=== PATIENT | female | born 1960 | race Caucasian/White ===

== ENCOUNTER → 2016-08-24 | Outpatient (CLI) | payer BC, OTHER ==
[~2016-08-24] MED LIST: AMLO-110 PO; ASPCH81X PO; CLOP1TAB15 PO; DOCU100C31 PO; OXYC-57 PO
--- NOTE | 2016-08-24 13:44 | MAMMOGRAPHY REPORT ---
BILATERAL DIGITAL SCREENING MAMMOGRAM TOMOSYNTHESIS WITH CAD: 08/24/2016 CLINICAL HISTORY: Routine screening. Patient has no complaints. TECHNIQUE: Breast tomosynthesis in addition to standard 2D mammography was performed. Current study was also evaluated with a Computer Aided Detection (CAD) system. COMPARISON: Comparison is made to exams dated: 08/13/2015 mammogram, 08/11/2014 mammogram, 08/07/2012 ma mmogram, 12/28/2009 mammogram, and 08/08/2013 mammogram - [facility]. BREAST COMPOSITION: The tissue of both breasts is heterogeneously dense, which may obscure small ma sses. FINDINGS: No suspicious masses, calcifications, or areas of architectural distortion are noted in e ither breast. There has been no significant interval change compared to prior exams. IMPRESSION: ACR BI-RADS CATEGORY 1: NEGATIVE There is no mammographic evidence of malignancy. A 1 year screening mammogram is recommended. The p atient will receive written notification of the results. Approximately 10% of breast cancers are not detected with mammography. A negative mammographic repor t should not delay biopsy if a clinically suggestive mass is present. Sarah Campuzano M.D. /:08/24/2016 08:38:35 [employer] Laborer: France Molina, [facility] letter sent: Normal 1/2 BI-RADS Code: ACR BI-RADS Category 1: Negative
== END | disposition home or self-care (01) ==
LOC: C.MAMM 08:06
PROVIDERS: ATTEND Family Medicine
DX: Z12.31 Encounter for screening mammogram for malignant neoplasm of breast (principal)

== ENCOUNTER → 2017-08-30 | Outpatient (CLI) | payer OTHER ==
--- NOTE | 2017-08-30 14:04 | MAMMOGRAPHY REPORT ---
BILATERAL DIGITAL SCREENING MAMMOGRAM TOMOSYNTHESIS WITH CAD: 08/30/2017 CLINICAL HISTORY: Routine screening examination. TECHNIQUE: Breast tomosynthesis in addition to standard 2D mammography was performed. Current study was also evaluated with a Computer Aided Detection (CAD) system. COMPARISON: Comparison is made to exams dated: 08/24/2016 mammogram, 08/13/2015 mammogram, 08/11/2014 miquel mogram, 08/08/2013 mammogram, 08/07/2012 mammogram, and 12/28/2009 mammogram - [facility] ter. BREAST COMPOSITION: The tissue of both breasts is heterogeneously dense, which may obscure small mas ses. FINDINGS: The parenchymal pattern is unchanged. No developing mass, architectural distortion or clus ter of suspicious microcalcifications is seen in either breast. IMPRESSION: ACR BI-RADS CATEGORY 2: BENIGN There is no mammographic evidence of malignancy. A 1 year screening mammogram is recommended. The pa tient will receive written notification of the results. Approximately 10% of breast cancers are not detected with mammography. A negative mammographic report should not delay biopsy if a clinically suggestive mass is present. Mary Schuler M.D. ay/:08/30/2017 08:03:01 Lieutenant Firefighter: Alma Delia PRATHER(Leo)(M), [facility] letter sent: Normal 1/2 BI-RADS Code: ACR BI-RADS Category 2: Benign
== END | disposition home or self-care (01) ==
LOC: C.MAMM 07:33
PROVIDERS: ATTEND Family Medicine
DX: Z12.31 Encounter for screening mammogram for malignant neoplasm of breast (principal)

== ENCOUNTER 2019-10-05 20:04 | Inpatient (IN) ==
[2019-10-05] MEDS ORDERED: ACETAMINOPHEN 500 MG TAB PO STA (20:35)
--- NOTE | 2019-10-05 20:43 | Emergency Department Note ---
Impression & Plan SOB (shortness of breath), Cough, Pneumonia, Fever, Failure of outpatient treatment ED Provider Note NAME: NARCISO GARIBAY AGE: 59 SEX: F : 1960 ARRIVES VIA: Walk-In INFORMANT: [Patient] ED PROVIDER(S): [Suman Tenorio MD] CHIEF COMPLAINT: Cough and shortness of breath HISTORY OF PRESENT ILLNESS: The patient is a 59-year-old female who has had 4 days of flulike symptoms. She has a cough, she feels short of breath, she has had some chills. She has some bilateral lower rib pain that is mild in severity from all her coughing. This pain worsens with cough. The patient denies nausea or vomiting. There has been no diarrhea. She had a slight sore throat from coughing. Her cough is at times productive. The patient was scheduled for a coronavirus test tomorrow. She presents today in the ED for this testing. Of note, the patient does have a right foot infection for which she is taking terbinafine and doxycycline. She sees the wound center every . The foot is doing okay, she is not here today because of any issue with her foot. Of note, the patient did not have any travel outside [place], she has had no known coronavirus exposures. REVIEW OF SYSTEMS: See HPI for pertinent positives and negatives. A total of ten systems were reviewed and were otherwise negative. PMHx/PSHx: See Below SOCIAL HISTORY: See Below. PHYSICAL EXAM: GENERAL: Patient is in no acute distress. HEENT: No acute trauma, normocephalic atraumatic, mucous membranes moist, no nasal congestion, no scleral icterus. No throat erythema or exudate. NECK: No stridor, no adenopathy, no meningismus, trachea is midline. LUNGS: Breath sounds are diminished bilaterally, breath sounds are equal. She is not in any respiratory distress. A dry cough is noted. She does have a crackle at the left base. HEART: Without murmurs gallops or rubs, regular rate and rhythm. ABDOMEN: Soft, nontender, bowel sounds positive, no hernias, no peritonitis. EXTREMITIES: No cyanosis or edema, full range of motion of all the joints without pain or difficulty, no signs for acute trauma. NEUROLOGIC: Oriented x 3, no acute motor or sensory deficits, no focal weakness. SKIN: No rash, no jaundice, no diaphoresis. DIFFERENTIAL DIAGNOSIS: Reactive airway disease, pneumonia, pneumothorax, COPD, CHF, infections, cardiac ischemia, pulmonary embolism, musculoskeletal, gastrointestinal, influenza, coronavirus, as well as other pathologies. EMERGENCY DEPARTMENT COURSE/PROCEDURES: Continuous Cardiac Monitoring: An order was placed for continuous cardiac monitoring. The monitor shows a rate of 79 with normal sinus rhythm. MEDICAL DECISION MAKING: There is no leukocytosis or concerning anemia. Platelet count was normal. No significant electrolyte abnormality or kidney failure. No coagulopathy. Lactic acid level was not elevated making sepsis less likely. No worrisome liver enzyme elevation. Procalcitonin level was normal. Influenza testing was negative. Chest film does show a left lung pneumonia. Bio fire and saldivar testing are currently pending. The patient received IV saline, 500 cc. She was given oral Tylenol and IV Toradol. She was given IV cefepime as antibiotic coverage. The patient is already on doxycycline. Patient presents with cough and fever and some shortness of breath. She does have pneumonia by work-up. She was scheduled for a coronavirus test tomorrow, 1 was run today and this result is of course still pending. Given the failed outpatient treatment, given her dyspnea, given her findings, I do think a hospital stay is warranted. I did speak to the patient and case management, the on-call hospitalist has been consulted. Patient is aware of all her findings. Past Med/Surg History Medical History Adjustment disorder with mixed anxiety and depressed mood Benign essential hypertension with target blood pressure below 140/90 Dermatitis fungal (Acute) Dysthymic disorder History of stent insertion of renal artery Open wound of foot (Acute) Polyneuropathy in diseases classified elsewhere Suppression amblyopia Surgical History H/O eye surgery H/O: hysterectomy S/P tonsillectomy Social History Preferred Language: Peruvian Visual Impairment: Limited Hearing Ability: Normal Beliefs That Will Affect Care: None marital status: Current Living Situation: Spouse current occupational status: employed Feels Safe at Home: Yes Smoking Status: Never smoker Hx Alcohol Use: No Hx Substance Use: No Allergies Allergies Allergy/AdvReac Type Severity Reaction Status Date / Time No Known Allergies Allergy Mild Verified 10/05/19 21:28 Home Meds Home Medications Medication Instructions Recorded Confirmed amlodipine 5 mg tablet 5 mg PO DAILY 09/10/19 10/05/19 aspirin 81 mg tablet,delayed 81 mg PO DAILY 09/10/19 10/05/19 release atorvastatin 40 mg tablet 40 mg PO DAILY 09/10/19 10/05/19 clopidogrel 75 mg tablet 75 mg PO DAILY 09/10/19 10/05/19 Previous Rx's Medication Instructions Recorded doxycycline hyclate 100 mg tablet 100 mg PO bid 14 Days #28 tab 09/25/19 terbinafine HCl 250 mg tablet 250 mg PO DAILY 14 Days #14 tab 09/25/19 Results & Data (ED) Vital Signs Vital Signs - 24 hr 10/05/19 20:10 10/05/19 20:48 10/05/19 21:55 Temperature 37.9 C H Temperature Source Oral Pulse Rate 106 H Pulse Rate [Right Finger] Pulse Rate from SpO2 Sensor Respiratory Rate 24 Respiratory Effort / Characteristics Non-Labored Respiratory Depth Normal Respiratory Pattern Regular Blood Pressure 153/88 H Blood Pressure [Right Arm] Blood Pressure Mean 109 Blood Pressure Mean [Right Arm] Blood Pressure Position [Right Arm] Pulse Oximetry 97 95 Oxygen Delivery Method Room Air Room Air Sepsis Action Taken by Nursing No Action Required 10/05/19 22:02 10/05/19 22:30 10/05/19 23:00 Temperature 38.2 C H Temperature Source Oral Pulse Rate 83 79 Pulse Rate [Right Finger] 81 Pulse Rate from SpO2 Sensor 83 81 Respiratory Rate 20 18 18 Respiratory Effort / Characteristics Non-Labored Spontaneous Respiratory Depth Normal Respiratory Pattern Blood Pressure 119/77 120/72 Blood Pressure [Right Arm] 120/81 Blood Pressure Mean 85 86 Blood Pressure Mean [Right Arm] 94 Blood Pressure Position [Right Arm] Lying Pulse Oximetry 94 97 96 Oxygen Delivery Method Room Air Room Air Room Air Sepsis Action Taken by Nursing 10/05/19 23:15 10/05/19 23:30 10/05/19 23:31 Temperature Temperature Source Pulse Rate 82 80 77 Pulse Rate [Right Finger] Pulse Rate from SpO2 Sensor 81 81 77 Respiratory Rate 13 14 18 Respiratory Effort / Characteristics Respiratory Depth Respiratory Pattern Blood Pressure 108/67 Blood Pressure [Right Arm] Blood Pressure Mean 68 Blood Pressure Mean [Right Arm] Blood Pressure Position [Right Arm] Pulse Oximetry 95 97 97 Oxygen Delivery Method Sepsis Action Taken by Nursing 10/05/19 23:36 Temperature Temperature Source Pulse Rate Pulse Rate [Right Finger] Pulse Rate from SpO2 Sensor Respiratory Rate Respiratory Effort / Characteristics Respiratory Depth Respiratory Pattern Blood Pressure Blood Pressure [Right Arm] Blood Pressure Mean Blood Pressure Mean [Right Arm] Blood Pressure Position [Right Arm] Pulse Oximetry Oxygen Delivery Method Room Air Sepsis Action Taken by Snf Medications Current Medication List: was personally reviewed by me Laboratory Data Attestation: I reviewed the patient's lab results. Result diagrams: 10/05/19 22:03 10/05/19 22:03 Lab Results 10/05/19 10/05/19 10/05/19 Range/Units 20:47 22:03 22:03 WBC 6.78 (4.8-10.8) K/uL RBC 4.29 (4.2-5.4) M/uL Hgb 11.9 L (12.0-16.0) g/dL Hct 35.5 L (37-47) % MCV 82.8 (80-100) fL MCH 27.7 (25-34) pg MCHC 33.5 (32-36) g/dL RDW Std Deviation 42.8 (36.4-46.3) fL RDW Coeff of Jayant 14.2 (11.5-14.5) % Plt Count 213 (130-400) K/uL MPV 10.9 H (7.4-10.4) fL Immature Gran % (Auto) 0.4 % Neut % (Auto) 80.2 % Lymph % (Auto) 7.7 % [place] % (Auto) 10.3 % Eos % (Auto) 1.3 % Baso % (Auto) 0.1 % Immature Gran # (Auto) 0.03 H (0.00-0.02) K/uL Neut # (Auto) 5.43 (1.4-6.5) K/uL Lymph # (Auto) 0.52 L (1.2-3.4) K/uL [place] # (Auto) 0.70 H (0.11-0.59) K/uL Eos # (Auto) 0.09 (0-0.5) K/uL Baso # (Auto) 0.01 (0-0.2) K/uL PT 10.9 (9.0-12.0) Seconds INR 1.0 (0.9-1.1) APTT 28.4 (21.0-31.0) Seconds PTT Ratio 1.0 Sodium (136-145) mmol/L Potassium (3.5-5.1) mmol/L Chloride (98-107) mmol/L Carbon Dioxide (21-32) mmol/L Anion Gap (3-11) BUN (7-18) mg/dl Creatinine (0.6-1.2) mg/dl Est Cr Clr Drug Dosing ml/min Est GFR ( Amer) Est GFR (Non-Af Amer) BUN/Creatinine Ratio (10-20) Glucose (70-99) mg/dl Lactate (0.4-2.0) mmol/L Calcium (8.5-10.1) mg/dl Magnesium (1.8-2.4) mg/dl Total Bilirubin (0.2-1) mg/dl AST (15-37) U/L ALT (12-78) U/L Alkaline Phosphatase (45-117) U/L Total Protein (6.4-8.2) gm/dl Albumin (3.4-5.0) gm/dl Globulin (2.5-4.0) gm/dl Albumin/Globulin Ratio (0.9-2) Procalcitonin (0-0.5) ng/ml Influenza Type A (PCR) Neg for Influ A (Neg) Influenza Type B (PCR) Neg for Influ B (Neg) 10/05/19 10/05/19 10/05/19 Range/Units 22:03 22:03 22:03 WBC (4.8-10.8) K/uL RBC (4.2-5.4) M/uL Hgb (12.0-16.0) g/dL Hct (37-47) % MCV (80-100) fL MCH (25-34) pg MCHC (32-36) g/dL RDW Std Deviation (36.4-46.3) fL RDW Coeff of Jayant (11.5-14.5) % Plt Count (130-400) K/uL MPV (7.4-10.4) fL Immature Gran % (Auto) % Neut % (Auto) % Lymph % (Auto) % [place] % (Auto) % Eos % (Auto) % Baso % (Auto) % Immature Gran # (Auto) (0.00-0.02) K/uL Neut # (Auto) (1.4-6.5) K/uL Lymph # (Auto) (1.2-3.4) K/uL [place] # (Auto) (0.11-0.59) K/uL Eos # (Auto) (0-0.5) K/uL Baso # (Auto) (0-0.2) K/uL PT (9.0-12.0) Seconds INR (0.9-1.1) APTT (21.0-31.0) Seconds PTT Ratio Sodium 135 L (136-145) mmol/L Potassium 3.6 (3.5-5.1) mmol/L Chloride 105 (98-107) mmol/L Carbon Dioxide 22 (21-32) mmol/L Anion Gap 8.0 (3-11) BUN 16 (7-18) mg/dl Creatinine 0.93 (0.6-1.2) mg/dl Est Cr Clr Drug Dosing 72.0 ml/min Est GFR ( Amer) 78.0 Est GFR (Non-Af Amer) 67.3 BUN/Creatinine Ratio 17.1 (10-20) Glucose 110 H (70-99) mg/dl Lactate 1.0 (0.4-2.0) mmol/L Calcium 8.8 (8.5-10.1) mg/dl Magnesium 2.2 (1.8-2.4) mg/dl Total Bilirubin 0.7 (0.2-1) mg/dl AST 28 (15-37) U/L ALT 40 (12-78) U/L Alkaline Phosphatase 62 (45-117) U/L Total Protein 7.9 (6.4-8.2) gm/dl Albumin 3.2 L (3.4-5.0) gm/dl Globulin 4.7 H (2.5-4.0) gm/dl Albumin/Globulin Ratio 0.7 L (0.9-2) Procalcitonin < 0.05 (0-0.5) ng/ml Influenza Type A (PCR) (Neg) Influenza Type B (PCR) (Neg) Administered Medications Discontinued Medications Acetaminophen (Tylenol) 1,000 mg PO NOW STA Stop: 10/05/19 20:36 Last Admin: 10/05/19 20:46 Dose: 1,000 mg Documented by: [id number] Sodium Chloride (Nss) 500 mls @ 999 mls/hr IV .Q31M ONE Stop: 10/05/19 21:49 Last Infusion: 10/05/19 22:29 Dose: 0 mls/hr Documented by: [id number] Admin: 10/05/19 21:59 Dose: 999 mls/hr Documented by: [id number] Cefepime HCl (Maxipime) 2,000 mg in 20 mls @ 5 mls/min IV NOW STA; Protocol Stop: 10/05/19 21:22 Last Admin: 10/05/19 21:59 Dose: 5 mls/min Documented by: [id number] Ketorolac Tromethamine (Toradol) 15 mg IV NOW STA Stop: 10/05/19 22:21 Last Admin: 10/05/19 22:38 Dose: 15 mg Documented by: [id number] Imaging Data Radiologist's Impression: XR chest 1V portable CLINICAL HISTORY: fever sob dyspnea COMPARISON STUDY: No previous studies for comparison. FINDINGS: Diffuse parenchymal interstitial infiltrate left mid to lower lung. Potential area of nodularity versus segmental atelectasis right upper lung. Right base is clear. IMPRESSION: 1. Diffuse interstitial infiltrate left mid and lower lung. 2. Potential nodular density versus atelectasis peripheral aspect right upper lung. Blood Pressure Blood Pressure Findings: Normal blood pressure Discharge Plan Visit Data Chief Complaint: Shortness of Breath/Dyspnea Stated Complaint: SOB, COUGH ED Provider: Suman Tenorio Discharge Problem: SOB (shortness of breath), Cough, Pneumonia, Fever, Failure of outpatient treatment Patient Disposition: Being Evaluated by Hospitalist Condition: Good Forms Stand Alone Forms: My [facility] Prescriptions Prescriptions: No Action amlodipine [Norvasc] 5 mg tablet 5 mg PO DAILY RF: 0 clopidogrel [Plavix] 75 mg tablet 75 mg PO DAILY RF: 0 atorvastatin [Lipitor] 40 mg tablet 40 mg PO DAILY RF: 0 aspirin [Ecotrin Low Strength] 81 mg tablet,delayed release (DR/EC) 81 mg PO DAILY RF: 0 terbinafine HCl 250 mg tablet 250 mg PO DAILY 14 Days Qty: 14 RF: 0 doxycycline hyclate 100 mg tablet 100 mg PO bid 14 Days Qty: 28 RF: 0 Referrals Referrals: Nilda Connor DO [Primary Care Provider] - Discharge Problem: Pneumonia Qualifiers: Pneumonia type: due to unspecified organism Laterality: left Lung location: lower lobe of lung Qualified Code(s): J18.9 - Pneumonia, unspecified organism Fever Qualifiers: Fever type: unspecified Qualified Code(s): R50.9 - Fever, unspecified
--- NOTE | 2019-10-05 21:15 | XRay Report ---
XR chest 1V portable CLINICAL HISTORY: fever sob dyspnea COMPARISON STUDY: No previous studies for comparison. FINDINGS: Diffuse parenchymal interstitial infiltrate left mid to lower lung. Potential area of nodularity versus segmental atelectasis right upper lung. Right base is clear. IMPRESSION: 1. Diffuse interstitial infiltrate left mid and lower lung. 2. Potential nodular density versus atelectasis peripheral aspect right upper lung. ACT 112: Negative or not required by law. The above report was generated using voice recognition software. It may contain grammatical, syntax or spelling errors. Electronically signed by: Sea Weaver M.D. 10/05/2019 9:14 PM
[2019-10-05] MEDS ORDERED: CEFEPIME 2,000 MG/20 ML VIAL IV STA (21:19)
[2019-10-05] MEDS ORDERED: SODIUM CHLORIDE 0.9% 500 ML IV ONE (21:19)
[2019-10-05 21:43] LABS: Influenza A virus by PCR Neg for Influ A (Neg); Influenza B virus by PCR Neg for Influ B (Neg)
[2019-10-05] MEDS ORDERED: KETOROLAC TROMETHAMINE 15 MG/ML VIAL IV STA (22:20)
[2019-10-05 22:21] LABS: Basophils # (auto) 0.01 K/uL (0-0.2); Basophils % (auto) 0.1 %; Eosinophils # (auto) 0.09 K/uL (0-0.5); Eosinophils % (auto) 1.3 %; Hematocrit (blood only) 35.5 % (37-47); Hemoglobin 11.9 g/dL (12.0-16.0); Immature Granulocytes # (auto) 0.03 K/uL (0.00-0.02); Immature Granulocytes % (auto) 0.4 %; Lymphocytes # (auto) 0.52 K/uL (1.2-3.4); Lymphocytes % (auto) 7.7 %; Mean Corpuscular Hemoglobin 27.7 pg (25-34); Mean Corpuscular Hgb Conc 33.5 g/dL (32-36); Mean Corpuscular Volume 82.8 fL (80-100); Mean Platelet Volume 10.9 fL (7.4-10.4); Monocytes % (auto) 10.3 %; Neutrophils # (auto) 5.43 K/uL (1.4-6.5); Neutrophils % (auto) 80.2 %; Platelet Count 213 K/uL (130-400); RDW Coefficient of Variation 14.2 % (11.5-14.5); RDW Standard Deviation 42.8 fL (36.4-46.3); Red Blood Count 4.29 M/uL (4.2-5.4); White Blood Count 6.78 K/uL (4.8-10.8)
[2019-10-05 22:35] LABS: Partial Thromboplastin Time 28.4 Seconds (21.0-31.0); Prothrombin Time 10.9 Seconds (9.0-12.0)
[2019-10-05 22:37] LABS: Albumin Level 3.2 gm/dl (3.4-5.0); BUN Creatinine Ratio 17.1 (10-20); Calcium 8.8 mg/dl (8.5-10.1); Est GFR (Non-African American) 67.3; Magnesium 2.2 mg/dl (1.8-2.4); Potassium 3.6 mmol/L (3.5-5.1)
[2019-10-05 22:40] LABS: Albumin Globulin Ratio 0.7 (0.9-2); Bilirubin,Total 0.7 mg/dl (0.2-1); Globulin 4.7 gm/dl (2.5-4.0); Total Protein 7.9 gm/dl (6.4-8.2)
[2019-10-05 23:51] LABS: Thyroid Stimulating Hormone 0.749 uIu/ml (0.300-4.500)
--- NOTE | 2019-10-06 00:05 | History & Physical Report ---
Date of Service October 06, 2019 Assessment & Plan (1) Sepsis: Secondary to community-acquired pneumonia ro COVID-19 given flulike symptoms, possible exposure with [employer] housing employment hypertension, stable PVD status post surgery mood disorder, stable right foot wound/dermatitis ongoing doxycycline/terbinafine Rx, improving, recent follow-up at [facility] Hyperglycemia rule out DM Medical telemetry Cultures, add Ceftriaxone to home Doxycycline Rx which patient has been taking for her foot infection for appropriate coverage of presumptive CAP Follow COVID-19 testing Isolation until COVID-19 results available Check hemoglobin A1c DVT prophylaxis. Lovenox subcu Full code Text document was generated using [employer] voice recognition software. It may contain grammatical or spelling errors. Kindly contact undersigned for clarification of any documentation item in question. History of Present Illness Chief Complaint: Worsening cough, S OB Primary Care Provider: Nilda Connor DO History obtained from patient and records. Medical history significant for hypertension, PVD, mood disorder, right foot wound/dermatitis ongoing doxycycline/terbinafine Rx. 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 4 days history of flulike symptoms followed by junky cough symptoms, shortness of breath, and some chills. Chest discomfort with coughing. Poor appetite. No aspiration. No known recent travel. Patient not sure about sick contacts as she works at [employer]. Patient messaged PCP's office yesterday. Outpatient COVID 19 testing scheduled the following day. Patient consulted ER for worsening symptoms. At the ER, patient received Cefepime for sepsis. 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 Allergies Allergy/AdvReac Type Severity Reaction Status Date / Time No Known Allergies Allergy Mild Verified 10/05/19 21:28 Home Medications Home Medications Medication Instructions Recorded Confirmed Type amlodipine 5 mg tablet 5 mg PO DAILY 09/10/19 10/05/19 History aspirin 81 mg tablet,delayed 81 mg PO DAILY 09/10/19 10/05/19 History release atorvastatin 40 mg tablet 40 mg PO DAILY 09/10/19 10/05/19 History clopidogrel 75 mg tablet 75 mg PO DAILY 09/10/19 10/05/19 History doxycycline hyclate 100 mg tablet 100 mg PO bid 14 Days #28 tab 09/25/19 10/05/19 Rx terbinafine HCl 250 mg tablet 250 mg PO DAILY 14 Days #14 tab 09/25/19 10/05/19 Rx Past Med/Surg History Medical History Adjustment disorder with mixed anxiety and depressed mood Benign essential hypertension with target blood pressure below 140/90 Dermatitis fungal (Acute) Dysthymic disorder History of stent insertion of renal artery Open wound of foot (Acute) Polyneuropathy in diseases classified elsewhere Suppression amblyopia Surgical History H/O eye surgery H/O: hysterectomy S/P tonsillectomy Social History Preferred Language: Yemeni Communication Ability: Effective Visual Impairment: Limited Hearing Ability: Normal Campaign Management Specialist Required: No Beliefs That Will Affect Care: None marital status: Current Living Situation: Spouse current occupational status: employed Feels Safe at Home: Yes Safety Concerns: Feels Safe At This Time Smoking Status: Never smoker Hx Alcohol Use: No Hx Substance Use: No Review of Systems Review of Systems: As per HPI, all 10 systems reviewed, all other ROS negative Physical Exam Physical Exam: GENERAL: Comfortable, pleasant, obese, no respiratory distress SKIN: Normal color, warm HEENT: Bespectacled, pink palpebral conjunctivae, no ptosis, dry buccal mucosa NECK : Supple, short neck, no tenderness CHEST : CTA, no tenderness HEART : RRR, no obvious murmurs ABDOMEN: Some distention, nontender EXTREMITIES : Minimal LE swelling, no LE tenderness, dressing over right foot NEUROLOGIC : Coherent, no facial asymmetry, no other gross focality Results & Data Results & Data ([facility]) Vital Signs (Past 12 Hours) Vital Signs Temp Pulse Pulse Resp BP BP Pulse Ox 10/05/19 23:31 77 18 108/67 97 10/05/19 23:30 80 14 97 10/05/19 23:15 82 13 95 10/05/19 23:00 79 18 120/72 96 10/05/19 22:30 83 18 119/77 97 10/05/19 22:02 38.2 C H 81 20 120/81 94 03/29/20 21:55 95 10/05/19 20:10 37.9 C H 106 H 24 153/88 H 97 Diagnostic Findings Laboratory Results WBC 6.78 K/uL (4.8-10.8) 10/05/19 22:03 RBC 4.29 M/uL (4.2-5.4) 10/05/19 22:03 Hgb 11.9 g/dL (12.0-16.0) L 10/05/19 22:03 Hct 35.5 % (37-47) L 10/05/19 22:03 MCV 82.8 fL (80-100) 10/05/19 22:03 MCH 27.7 pg (25-34) 10/05/19 22:03 MCHC 33.5 g/dL (32-36) 10/05/19 22:03 RDW Std Deviation 42.8 fL (36.4-46.3) 10/05/19 22:03 RDW Coeff of Jayant 14.2 % (11.5-14.5) 10/05/19 22:03 Plt Count 213 K/uL (130-400) 10/05/19 22:03 MPV 10.9 fL (7.4-10.4) H 10/05/19 22:03 Immature Gran % (Auto) 0.4 % 10/05/19 22:03 Neut % (Auto) 80.2 % 10/05/19 22:03 Lymph % (Auto) 7.7 % 10/05/19 22:03 [place] % (Auto) 10.3 % 10/05/19 22:03 Eos % (Auto) 1.3 % 10/05/19 22:03 Baso % (Auto) 0.1 % 10/05/19 22:03 Immature Gran # (Auto) 0.03 K/uL (0.00-0.02) H 10/05/19 22:03 Neut # (Auto) 5.43 K/uL (1.4-6.5) 10/05/19 22:03 Lymph # (Auto) 0.52 K/uL (1.2-3.4) L 10/05/19 22:03 [place] # (Auto) 0.70 K/uL (0.11-0.59) H 10/05/19 22:03 Eos # (Auto) 0.09 K/uL (0-0.5) 10/05/19 22:03 Baso # (Auto) 0.01 K/uL (0-0.2) 10/05/19 22:03 PT 10.9 Seconds (9.0-12.0) 10/05/19 22:03 INR 1.0 (0.9-1.1) 10/05/19 22:03 APTT 28.4 Seconds (21.0-31.0) 10/05/19 22:03 PTT Ratio 1.0 10/05/19 22:03 Sodium 135 mmol/L (136-145) L 10/05/19 22:03 Potassium 3.6 mmol/L (3.5-5.1) 10/05/19 22:03 Chloride 105 mmol/L (98-107) 10/05/19 22:03 Carbon Dioxide 22 mmol/L (21-32) 10/05/19 22:03 Anion Gap 8.0 (3-11) 10/05/19 22:03 BUN 16 mg/dl (7-18) 10/05/19 22:03 Creatinine 0.93 mg/dl (0.6-1.2) 10/05/19 22:03 Est Cr Clr Drug Dosing 72.0 ml/min 10/05/19 22:03 Est GFR ( Amer) 78.0 10/05/19 22:03 Est GFR (Non-Af Amer) 67.3 10/05/19 22:03 BUN/Creatinine Ratio 17.1 (10-20) 10/05/19 22:03 Glucose 110 mg/dl (70-99) H 10/05/19 22:03 Lactate 1.0 mmol/L (0.4-2.0) 10/05/19 22:03 Calcium 8.8 mg/dl (8.5-10.1) 10/05/19 22:03 Magnesium 2.2 mg/dl (1.8-2.4) 10/05/19 22:03 Total Bilirubin 0.7 mg/dl (0.2-1) 10/05/19 22:03 AST 28 U/L (15-37) 10/05/19 22:03 ALT 40 U/L (12-78) 10/05/19 22:03 Alkaline Phosphatase 62 U/L (45-117) 10/05/19 22:03 Total Protein 7.9 gm/dl (6.4-8.2) 10/05/19 22:03 Albumin 3.2 gm/dl (3.4-5.0) L 10/05/19 22:03 Globulin 4.7 gm/dl (2.5-4.0) H 10/05/19 22:03 Albumin/Globulin Ratio 0.7 (0.9-2) L 10/05/19 22:03 Procalcitonin < 0.05 ng/ml (0-0.5) 10/05/19 22:03 TSH 0.749 uIu/ml (0.300-4.500) 10/05/19 22:03 Influenza Type A (PCR) Neg for Influ A (Neg) 10/05/19 20:47 Influenza Type B (PCR) Neg for Influ B (Neg) 10/05/19 20:47 Chest x-ray : 1. Diffuse interstitial infiltrate left mid and lower lung. 2. Potential nodular density versus atelectasis peripheral aspect right upper lung. EKG pending at time of dictation
[2019-10-06 00:14] LABS: Adenovirus PCR Not Detected (NotDetected); Bordetella parapertussis PCR Not Detected (NotDetected); Bordetella pertussis PCR Not Detected (NotDetected); Chlamydia pneumoniae PCR Not Detected (NotDetected); Coronavirus 229E PCR Not Detected (NotDetected); Coronavirus HKU1 PCR Not Detected (NotDetected); Coronavirus NL63 PCR Not Detected (NotDetected); Coronavirus OC43PCR Not Detected (NotDetected); Human Metapneumovirus PCR Not Detected (NotDetected); Influenza A PCR Not Detected (NotDetected); Influenza B PCR Not Detected (NotDetected); Mycoplasma pneumoniae PCR Not Detected (NotDetected); Parainfluenza Virus 1 PCR Not Detected (NotDetected); Parainfluenza Virus 2 PCR Not Detected (NotDetected); Parainfluenza Virus 3 PCR Not Detected (NotDetected); Parainfluenza Virus 4 PCR Not Detected (NotDetected); Respiratory Syncytial VirusPCR Not Detected (NotDetected); Rhinovirus/Enterovirus PCR Not Detected (NotDetected)
[2019-10-06] MEDS ORDERED: KETOROLAC TROMETHAMINE 15 MG/ML VIAL IV PRN (01:40)
[2019-10-06] MEDS ORDERED: PROMETHAZINE HCL 12.5 MG in SODIUM CHLORIDE 0.9% 50 ML IV PRN (01:40)
[2019-10-06] MEDS ORDERED: TRAMADOL HCL 50 MG TABLET PO PRN (01:40)
[2019-10-06] MEDS ORDERED: ACETAMINOPHEN 325 MG TAB PO PRN (01:40)
[2019-10-06] MEDS ORDERED: POTASSIUM CHLORIDE 40 MEQ in SODIUM CHLORIDE 0.9% 1000ML 1,000 ML IV ONE (02:30)
[2019-10-06] MEDS ORDERED: BENZONATATE 100 MG CAPSULE PO PRN (03:10)
[2019-10-06] MEDS ORDERED: XOPENEX/ATROVENT 1.25mg/0.5MG NEB COMBO NEB PRN (03:20)
[2019-10-06] MEDS ORDERED: IPRATROPIUM BROMIDE NEB SOLN 0.02% 2.5 ML VIAL INH PRN (03:30)
[2019-10-06] MEDS ORDERED: LEVALBUTEROL 1.25MG/0.5ML NEB INH PRN (03:30)
[2019-10-06 05:41] LABS: Estimated Average Glucose 128 mg/dl; Hemoglobin A1C 6.1 % (4.5-5.6)
[2019-10-06 07:14] LABS: Hemoglobin 10.8 g/dL (12.0-16.0); Mean Corpuscular Hemoglobin 27.8 pg (25-34); Mean Corpuscular Hgb Conc 33.8 g/dL (32-36); Mean Corpuscular Volume 82.3 fL (80-100); Mean Platelet Volume 11.3 fL (7.4-10.4); Platelet Count 196 K/uL (130-400); RDW Coefficient of Variation 14.1 % (11.5-14.5); RDW Standard Deviation 42.7 fL (36.4-46.3); Red Blood Count 3.89 M/uL (4.2-5.4); White Blood Count 6.23 K/uL (4.8-10.8)
[2019-10-06 07:52] LABS: Basophils # (auto) 0.01 K/uL (0-0.2); Basophils % (auto) 0.2 %; Eosinophils # (auto) 0.09 K/uL (0-0.5); Eosinophils % (auto) 1.4 %; Immature Granulocytes # (auto) 0.01 K/uL (0.00-0.02); Immature Granulocytes % (auto) 0.2 %; Lymphocytes % (auto) 11.2 %; Monocytes # (auto) 0.47 K/uL (0.11-0.59); Monocytes % (auto) 7.5 %; Neutrophils # (auto) 4.95 K/uL (1.4-6.5); Neutrophils % (auto) 79.5 %
[2019-10-06 07:53] LABS: BUN Creatinine Ratio 16.6 (10-20); Calcium 8.5 mg/dl (8.5-10.1); Est GFR (Non-African American) 67.3; Potassium 3.9 mmol/L (3.5-5.1)
[2019-10-06] MEDS: cefTRIAXone SODIUM 2,000 MG in DEXTROSE 5% 50 ML IV SCH (08:44)
[2019-10-06] MEDS: terbinafine HCL 250 MG TAB PO SCH (08:44)
[2019-10-06] MEDS: DOXYCYCLINE HYCLATE 100 MG CAP PO SCH ×2 (08:44→21:16)
[2019-10-06] MEDS: ATORVASTATIN 40 MG TAB PO SCH (08:45)
[2019-10-06] MEDS: ASPIRIN 81 MG ECTAB PO SCH (08:45)
[2019-10-06] MEDS: ENOXAPARIN INJ 40 MG/0.4 ML SYR SQ SCH (08:45)
[2019-10-06] MEDS: AMLODIPINE BESYLATE 5 MG TAB PO SCH (08:45)
[2019-10-06] MEDS: CLOPIDOGREL BISULFATE 75 MG TAB PO SCH (08:45)
--- NOTE | 2019-10-06 11:21 | Electrocardiogram Report ---
Test Reason : Blood Pressure : / mmHG Vent. Rate : 090 BPM Atrial Rate : 090 BPM P-R Int : 152 ms QRS Dur : 090 ms QT Int : 356 ms P-R-T Axes : 031 002 026 degrees QTc Int : 435 ms Normal sinus rhythm Normal ECG When compared with ECG of 03-DEC-2007 00:25, Questionable change in QRS axis Confirmed by Mauro Sal ([id number]) on 10/06/2019 11:21:17 AM Referred By: REFERRED SELF Confirmed By:Mauro Sal
--- NOTE | 2019-10-06 13:34 | Hospitalist Progress Note ---
Date of Service October 06, 2019 Assessment & Plan (1) Sepsis: Secondary to CAP and resuscitated overnight with clinical improvement. COVID 19 rule out as she was considered higher risk patient secondary to her h/o vascular disease. She also has been on doxycycline long-term for management of her chronic wound. Cont ceftriaxone and doxycycline for treatment of pneumonia (2) Pneumonia: Rocephin and doxy. Clinically improved and not requiring oxygen. She is still somewhat dyspneic so prefer to observe another day in the hospital. Monitor blood cultures and fever curve. (3) Dermatitis fungal: chronic, stable and followed by outpatient wound care. Inpatient wound care seeing her today and will await recs. (4) HTN (hypertension): At goal. Cont amlodipine per home regimen. (5) Anemia: Normocytic anemia, mild. Normal at baseline in early September. Changes likely reflect phlebotomy and hemodilution from IVF given overnight which has been stopped. No indication for transfusion at this time. (6) DVT prophylaxis: Lovenox Full code Dispo-likely to home in next 1-2 days. Aidee Langston DO [facility] Hospitalist Admission and Anticipated Discharge Date Admission Date: October 06, 2019 Anticipated date of discharge: 10/07/19 Subjective Pt feels her breathing and coughing are improved since yesterday with treatment overnight reports +chills overnight Tolerating food and no GI symptoms Denies headache. Denies chest pain Review of Systems Review of Systems: All systems reviewed & are unremarkable except as noted in Subjective Physical Exam Physical Exam: CONSTITUTIONAL: WNWD, vitals as above, generally well- appearing EYES: normal conjunctivae, no scleral icterus ENT: external ear and nose normal, oropharynx clear, MMM RESPIRATORY: clear to auscultation on the posterior right bermudez with crackles on the posterior left bermudez. No wheezing or rales heard. Some conversational dyspnea present. CARDIOVASCULAR: regular rate and rhythm, S1 and 2 heard without murmurs, gallops or rubs, no JVD, no peripheral edema GASTROINTESTINAL: soft, nontender, nondistended MUSCULOSKELETAL: strength 5/5 throughout, head is normocephalic and atraumatic, no gross focal deficits. SKIN: warm and dry, wound on right foot-covered by dressing that is c/d/i NEUROLOGIC: No facial palsy, no dysarthria. CN 2-12 grossly intact, normal cognition, normal speech, no tremor, no gross focal deificts. PSYCHIATRIC: alert cooperative and oriented to person, place and time. Results & Data Results & Data ([facility]) Vital Signs (Past 12 Hours) Vital Signs Temp Pulse Pulse Resp BP Pulse Ox 10/06/19 11:00 36.9 C 91 H 20 124/80 93 10/06/19 08:51 37.2 C 90 20 121/81 91 10/06/19 05:01 37.3 C 96 H 20 116/76 94 10/06/19 04:19 79 16 97 10/06/19 01:45 36.8 C 77 77 22 133/87 95 Laboratory Results Short CBC 10/05/19 10/06/19 Range/Units 22:03 06:54 WBC 6.78 6.23 (4.8-10.8) K/uL Hgb 11.9 L 10.8 L (12.0-16.0) g/dL Hct 35.5 L 32.0 L (37-47) % Plt Count 213 196 (130-400) K/uL BMP 10/05/19 10/06/19 22:03 06:54 Sodium 135 L 137 Potassium 3.6 3.9 Chloride 105 109 H Carbon Dioxide 22 22 BUN 16 15 Creatinine 0.93 0.93 Glucose 110 H 111 H Calcium 8.8 8.5 Liver Function 10/05/19 Range/Units 22:03 Total Bilirubin 0.7 (0.2-1) mg/dl AST 28 (15-37) U/L ALT 40 (12-78) U/L Alkaline Phosphatase 62 (45-117) U/L Albumin 3.2 L (3.4-5.0) gm/dl Medications Administered Current Inpatient Medications Acetaminophen (Tylenol) 650 mg PO Q4H PRN PRN Reason: Pain or Fever Stop: 11/05/19 01:39 Amlodipine Besylate (Norvasc) 5 mg PO DAILY [facility] Stop: 11/05/19 08:59 Last Admin: 10/06/19 08:45 Dose: 5 mg Documented by: Aspirin (Ecotrin Ectab) 81 mg PO DAILY [facility] Stop: 11/05/19 08:59 Last Admin: 10/06/19 08:45 Dose: 81 mg Documented by: Atorvastatin Calcium (Lipitor) 40 mg PO DAILY [facility]CI[facility] Stop: 11/05/19 08:59 Last Admin: 10/06/19 08:45 Dose: Not Given Documented by: Benzonatate (Tessalon Perle) 100 mg PO TID PRN PRN Reason: Cough Stop: 11/05/19 03:09 Last Admin: 10/06/19 04:00 Dose: 100 mg Documented by: Clopidogrel Bisulfate (Plavix) 75 mg PO DAILY [facility] Stop: 11/05/19 08:59 Last Admin: 10/06/19 08:45 Dose: 75 mg Documented by: Doxycycline Hyclate (Vibramycin) 100 mg PO BID [facility] Stop: 10/13/19 08:59 Last Admin: 10/06/19 08:44 Dose: 100 mg Documented by: Enoxaparin Sodium (Lovenox) 40 mg SQ QAM [facility] Stop: 11/05/19 08:59 Last Admin: 10/06/19 08:45 Dose: Not Given Documented by: Guaifenesin/Codeine Phosphate (Robitussin-Ac Sugar Free) 10 ml PO Q6H PRN PRN Reason: Cough Stop: 11/05/19 13:26 Last Admin: 10/06/19 14:27 Dose: 10 ml Documented by: Ceftriaxone Sodium 2,000 mg/ (Dextrose) 70 mls @ 140 mls/hr IV DAILY [facility]; Protocol Stop: 10/12/19 08:59 Last Infusion: 10/06/19 09:41 Dose: Infused Documented by: Ipratropium [place] (Atrovent 0.02% 0.5mg/2.5ml) 0.5 mg INH Q4H PRN PRN Reason: Shortness Of Breath Or Wheezing Stop: 11/05/19 03:29 Last Admin: 10/06/19 04:16 Dose: 0.5 mg Documented by: Levalbuterol HCl (Xopenex 1.25mg/0.5ml Neb) 1.25 mg INH Q4R PRN PRN Reason: Shortness Of Breath Or Wheezing Stop: 11/05/19 03:29 Last Admin: 10/06/19 04:16 Dose: 1.25 mg Documented by: Terbinafine HCl (Lamisil) 250 mg PO DAILY [facility] Stop: 11/05/19 08:59 Last Admin: 10/06/19 08:44 Dose: 250 mg Documented by: Tramadol HCl (Ultram) 25 - 50 mg PO Q4H PRN PRN Reason: Pain Stop: 11/05/19 01:39 (1) Pneumonia Laterality: left Lung location: lower lobe of lung Pneumonia type: due to unspecified organism Qualified Code(s): J18.9 - Pneumonia, unspecified organism
[2019-10-06] MEDS: GUAIFENESIN/CODEINE 200MG/20MG 10ML UDC PO PRN ×2 (14:27→22:28)
[2019-10-07] MEDS: GUAIFENESIN/CODEINE 200MG/20MG 10ML UDC PO PRN (04:53)
[2019-10-07 07:12] LABS: Hematocrit (blood only) 31.8 % (37-47); Hemoglobin 10.5 g/dL (12.0-16.0); Mean Corpuscular Hemoglobin 27.6 pg (25-34); Mean Corpuscular Volume 83.7 fL (80-100); Mean Platelet Volume 10.8 fL (7.4-10.4); Platelet Count 240 K/uL (130-400); RDW Coefficient of Variation 14.5 % (11.5-14.5); RDW Standard Deviation 44.6 fL (36.4-46.3)
[2019-10-07 07:45] LABS: BUN Creatinine Ratio 16.4 (10-20); Calcium 8.8 mg/dl (8.5-10.1); Creatinine Clr Calc Pharmacy 75.7 ml/min; Est GFR (African American) 82.2; Est GFR (Non-African American) 70.9; Potassium 4.3 mmol/L (3.5-5.1)
[2019-10-07] MEDS: DOXYCYCLINE HYCLATE 100 MG CAP PO SCH (08:27)
[2019-10-07] MEDS: ATORVASTATIN 40 MG TAB PO SCH (08:27)
[2019-10-07] MEDS: terbinafine HCL 250 MG TAB PO SCH (08:28)
[2019-10-07] MEDS: ENOXAPARIN INJ 40 MG/0.4 ML SYR SQ SCH (08:28)
[2019-10-07] MEDS: ASPIRIN 81 MG ECTAB PO SCH (08:28)
[2019-10-07] MEDS: CLOPIDOGREL BISULFATE 75 MG TAB PO SCH (08:28)
[2019-10-07] MEDS: AMLODIPINE BESYLATE 5 MG TAB PO SCH (08:28)
[2019-10-07] MEDS: cefTRIAXone SODIUM 2,000 MG in DEXTROSE 5% 50 ML IV SCH (08:35)
--- NOTE | 2019-10-07 14:45 | Discharge Summary ---
Date of Service October 07, 2019 Admission HPI Per Admitting Provider History obtained from patient and records. Medical history significant for hypertension, PVD, mood disorder, right foot wound/dermatitis ongoing doxycycline/terbinafine Rx. 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 4 days history of flulike symptoms followed by junky cough symptoms, shortness of breath, and some chills. Chest discomfort with coughing. Poor appetite. No aspiration. No known recent travel. Patient not sure about sick contacts as she works at [employer]. Patient messaged PCP's office yesterday. Outpatient COVID 19 testing scheduled the following day. Patient consulted ER for worsening symptoms. At the ER, patient received Cefepime for sepsis. 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 Admission Exam Per Admitting Provider GENERAL: Comfortable, pleasant, obese, no respiratory distress SKIN: Normal color, warm HEENT: Bespectacled, pink palpebral conjunctivae, no ptosis, dry buccal mucosa NECK : Supple, short neck, no tenderness CHEST : CTA, no tenderness HEART : RRR, no obvious murmurs ABDOMEN: Some distention, nontender EXTREMITIES : Minimal LE swelling, no LE tenderness, dressing over right foot NEUROLOGIC : Coherent, no facial asymmetry, no other gross focality Principal Diagnosis Community-acquired pneumonia Fungal Dermatitis Discharge Exam CONSTITUTIONAL: WNWD, vitals as above, generally well-appearing EYES: normal conjunctivae, no scleral icterus ENT: external ear and nose normal, oropharynx clear, MMM RESPIRATORY: clear to auscultation throughout with resolution of crackles. No wheezing or rales heard. Conversational dyspnea has resolved. CARDIOVASCULAR: regular rate and rhythm, S1 and 2 heard without murmurs, gallops or rubs, no JVD, no peripheral edema GASTROINTESTINAL: soft, nontender, nondistended MUSCULOSKELETAL: strength 5/5 throughout, head is normocephalic and atraumatic, no gross focal deficits. SKIN: warm and dry, wound on right foot-covered by dressing that is c/d/i NEUROLOGIC: No facial palsy, no dysarthria. CN 2-12 grossly intact, normal cognition, normal speech, no tremor, no gross focal deificts. PSYCHIATRIC: alert cooperative and oriented to person, place and time. Discharge Data Allergies Allergy/AdvReac Type Severity Reaction Status Date / Time No Known Allergies Allergy Mild Verified 10/05/19 21:28 Consultations 10/05/19 23:16 ED Decision to Admit Stat Hospital Course (1) Pneumonia: (2) Dermatitis fungal: 59-year-old female presented to the ER with reports of 4 days of flulike symptoms. She had been scheduled for a coronavirus test and PCP appointment, however, her symptoms worsened prompting early presentation to the ER. She had notably been on doxycycline and terbinafine for a toe wound recently. There was no new leukocytosis or concerning anemia present. There was no significant electrolyte abnormality or kidney failure present. There was no coagulopathy or worrisome transaminitis. Procalcitonin level was normal. Lactic acid level was not elevated and sepsis was less likely. Influenza testing was negative. Chest film did show a left lung pneumonia. Promuc respiratory panel was tested and negative. COVID-19 testing was drawn and pending at the time of discharge. She received normal saline Tylenol, Toradol and was given IV cefepime empirically. She was continued on her doxycycline admitted to the hospitalist service. The next day she exhibited conversational dyspnea but had a drastic improvement in shortness of breath and coughing. She stayed one additional day with continued resolution of symptoms. Blood cultures were drawn and negative at time of discharge. At time of discharge she was mentating and ambulating at baseline and tolerating p.o. She was oxygenating well on room air and been afebrile for over 24 hours. Lung exam was clear to auscultation with a resolution of initial posterior crackles. She was sent home in stable condition with close primary care follow-up recommended. Of note, as her COVID-19 testing was still pending at the time of discharge, she was instructed to wear a mask when interacting with anyone and when going into the public. Outside of that she should self isolate in her home pending the finalized results. She verbalized understanding with intent to comply. A chest x-ray is recommended in 4 weeks to ensure complete resolution of pneumonia. Total Time Total Time Spent Total Time Spent (In Minutes): 60 Total Time Includes: Examination of the Patient, Discharge Planning, Medication Reconciliation and Communication With Other Providers Discharge Plan Discharge Items Patient Disposition: Home - Self-Care Reason For Visit: SEPSIS Discharge Diagnosis: Community-acquired pneumonia Fungal Dermatitis Condition on Discharge: Good Health Concerns: Please self-isolate in your home and please wear a simple face mask when interacting with anyone or when going into public until your COVID testing has resulted. Activity: Resume your previous activity Non-emergency contact: Primary Care Provider Call non-emergency contact if: you have any medication questions, your symptoms worsen, your pain is not controlled, your pain is worsening, your pain is unusual for you, your pain is concerning for you and you have a fever Follow-up/Referrals: Nilda Connor DO [Primary Care Provider] - 10/13/19 10:40 am (10/13/2019 10:40 AM Dayton Ruiz MD [facility] NOTE: The [facility] office is temporarily closed due to Covid-19. Your appointment with Dr. Ruiz is at the [facility] office, [address] [place] [address] ) Diet: Regular Addtl Attending Provider Instructions: Please self-isolate in your home and please wear a simple face mask when interacting with anyone or when going into public until your COVID testing has resulted. Please take all medications as instructed on discharge list below. It is recommended that you follow-up with your primary care provider at the appointment time and date above. Topic to discuss include resolution of pneumonia (a chest xray is recommended in 4 weeks to ensure complete resolution), ensuring no worsening of your clinical course since discharge from the hospital. It was a pleasure taking care of you! Please call if you have any questions or problems. You can reach a [facility] hospitalist on duty at [facility] 24 hours a day by calling [phone]. Take care of yourself. Aidee Langston DO [facility] Hospitalist Pending Studies at Discharge: Yes Studies:: COVID-19 result, finalized blood cultures Stand-Alone Forms: My [facility], Smoking Cessation Medications and DC Order Prescriptions: New codeine-guaifenesin 10-100 mg/5 mL Liquid 10 ml PO Q6H PRN (Reason: cough) Qty: 120 RF: 0 amoxicillin 500 mg capsule 500 mg PO Q8H Qty: 15 RF: 0 Continued amlodipine [Norvasc] 5 mg tablet 5 mg PO DAILY RF: 0 clopidogrel [Plavix] 75 mg tablet 75 mg PO DAILY RF: 0 atorvastatin [Lipitor] 40 mg tablet 40 mg PO DAILY RF: 0 aspirin [Ecotrin Low Strength] 81 mg tablet,delayed release (DR/EC) 81 mg PO DAILY RF: 0 terbinafine HCl 250 mg tablet 250 mg PO DAILY 14 Days Qty: 14 RF: 0 doxycycline hyclate 100 mg tablet 100 mg PO bid 14 Days Qty: 28 RF: 0 Discharge Orders: Discharge Order (Routine); Ordered 10/07/19 Ordered By: Aidee Gee/Other Patient Handouts: A1C Admission Data Admit Date/Time: 10/06/19 00:07 Attending Provider: Aidee Langston Admit Provider: Luis Pink Primary Care Provider: Nilda Connor Other Providers: Luis Pink
[2019-10-10 11:00] LABS: COVID-19 Patient Symptomatic? YES; PAN-SARS Coronavirus RNA POSITIVE (NEGATIVE); SARS CoV2 RNA (COVID-19) POSITIVE (NEGATIVE); SARS Coronavirus RNA Source NASOPHARYNGEAL
--- NOTE | 2019-10-10 15:20 | Communication Note ---
Date of Service: October 10, 2019 I was made aware of the positive COVID-19 result on this patient and called her to update her with the following guidance: -she will need to self-quarantine for at least 7 days after symptom onset, and stay isolated for at least 3 days after symptoms begin to resolve. -she must be fever-free for at least 3 days before coming off self-quarantine -household contacts must quarantine for a minimum of 14 days after their last exposure from this patient, and if they are continuously exposed, to self- quarantine for 14 days after the patient is off isolation per the guidance above. She later told me she was contacted by the ER and told she was positive. She verbalized understanding of the results with intent to comply with the guidance above. Aide[facility] Langston DO [facility]
== END 2019-10-07 16:17 | disposition home or self-care (01) | DRG 195 ==
LOC: ED 20:04 → 2N 10-06 00:07

== ENCOUNTER 2021-04-17 08:47 | Observation (INO) ==
--- NOTE | 2021-04-17 09:10 | Emergency Department Note ---
Impression & Plan Right-sided chest pain, SOB (shortness of breath), Pulmonary emboli, Pleuritic chest pain ED Provider Note NAME: NARCISO GARIBAY AGE: 61 SEX: F : 1960 ARRIVES VIA: Walk-In INFORMANT: [Patient] ED PROVIDER(S): [Suman Tenorio MD] CHIEF COMPLAINT: Shortness of breath, chest pain HISTORY OF PRESENT ILLNESS: The patient is a 61-year-old female who presents to the ER with several hours of right lateral chest discomfort. The pain is a 5/10 and pleuritic. It also worsens with positioning and certain movements. She feels somewhat short of breath because of the pain. There has been no cough, no congestion, no fever. The patient denies any fall but she admits that she is doing some remodeling at the house and also recently, 3 days ago, started lifting weights for exercise. Initially when she noticed the pain this morning, she thought she just pulled a muscle however now, she is worried it could be something more so she presents for evaluation. Patient has no history of DVT or PE although, she believes her mother had a clot at 1 point. Of note, the patient is vaccinated against COVID-19, she also has had COVID-19. REVIEW OF SYSTEMS: See HPI for pertinent positives and negatives. A total of ten systems were re viewed and were otherwise negative. PMHx/PSHx: See Below SOCIAL HISTORY: See Below. PHYSICAL EXAM: GENERAL: Patient is in no acute distress. HEENT: No acute trauma, normocephalic atraumatic, mucous membranes moist, no nasal congestion, no scleral icterus. NECK: No stridor, no adenopathy, no meningismus, trachea is midline. LUNGS: Clear to auscultation bilaterally, no wheeze, no rhonchi, breath sounds equal. Breath sounds diminished bilaterally. Chest: Tender to the right lateral lower/anterior chest wall, no rash. Pain worsens with movement and breathing. HEART: Without murmurs gallops or rubs, regular rate and rhythm. ABDOMEN: Soft, nontender, bowel sounds positive, no hernias, no peritonitis. EXTREMITIES: No cyanosis or edema, full range of motion of all the joints without pain or difficulty, no signs for acute trauma. NEUROLOGIC: Oriented x 3, no acute motor or sensory deficits, no focal weakness. SKIN: No rash, no jaundice, no diaphoresis. DIFFERENTIAL DIAGNOSIS: Cardiac ischemia, aortic dissection, pulmonary embolism, pneumothorax, pneumonia, pericarditis, myocarditis, esophageal rupture, GERD, cholecystitis, pancreatitis, musculoskeletal, as well as other pathologies. EMERGENCY DEPARTMENT COURSE/PROCEDURES: ECG: Indication was shortness of breath and chest pain. The ECG shows a normal sinus rhythm with a rate of 75. There is evidence for potential old inferior infarct. There is no ST elevation, no PVCs. The QTc is 422. Compared to an ECG from 06 October 2019, the criteria for an inferior infarct are more notable today. Continuous Cardiac Monitoring: An order was placed for continuous cardiac monitoring. The monitor shows a rate of 78 with normal sinus rhythm. Critical Care Note: I have personally spent 43 minutes of critical care time in the direct management of this patient. This includes bedside care, interpretation of diagnostic studies, and testing, discussion with consultants, patient, and family members, and other required patient management activities. This 43 minutes is in excess of all separately billable procedures. MEDICAL DECISION MAKING: There is no leukocytosis or concerning anemia. There is a normal platelet count. No coagulopathy. D-dimer was elevated at over 2000, this is consistent with the possibility of PE. There was no significant electrolyte abnormality or kidney failure. No concerning liver enzyme elevation. No evidence for pancreatitis. ECG showed a sinus rhythm, no acute ischemia. Cardiac enzyme testing x1 is not consistent with acute cardiac injury. Covid testing returned negative. Chest film did not show pneumonia, free air or pneumothorax. Chest CT shows right-sided pulmonary emboli. Bilateral lower extremity ultrasound was performed, there was no acute DVT. Patient presents with right-sided pleuritic chest pain. She complained of being short of breath. She was found to have pulmonary emboli on work-up. I did speak with her about using anticoagulants. She consented to the use of IV heparin. This was administered as an IV bolus and drip. The patient is in need of a hospital stay. The cause for the PE is unclear. Further work-up is warranted. Anticoagulation is indicated. I did speak with the patient and case management. The on-call hospitalist was consulted. Past Med/Surg History Medical History (Updated 04/17/21 @ 16:52 by Suman Tenorio MD) Adjustment disorder with mixed anxiety and depressed mood Benign essential hypertension with target blood pressure below 140/90 COVID-19 Dermatitis fungal Dysthymic disorder History of stent insertion of renal artery Open wound of foot Polyneuropathy in diseases classified elsewhere Suppression amblyopia Surgical History H/O eye surgery H/O: hysterectomy S/P tonsillectomy Social History Smoking Status: Never smoker Hx Alcohol Use: No Hx Substance Use: No Preferred Language: Telugu Communication Ability: Effective Visual Impairment: Limited Hearing Ability: Normal 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 Beliefs That Will Affect Care: None marital status: Current Living Situation: Spouse current occupational status: employed Feels Safe at Home: Yes Assistive Devices: None Allergies Allergies Allergy/AdvReac Type Severity Reaction Status Date / Time No Known Allergies Allergy Verified 04/17/21 09:37 Home Meds Home Medications Medication Instructions Recorded Confirmed amlodipine 5 mg tablet (Norvasc) 5 mg PO QAM 09/10/19 04/17/21 aspirin 81 mg tablet,delayed 81 mg PO QAM 09/10/19 04/17/21 release (Ecotrin Low Strength) atorvastatin 40 mg tablet (Lipitor) 40 mg PO QAM 09/10/19 04/17/21 clopidogrel 75 mg tablet (Plavix) 75 mg PO QAM 09/10/19 04/17/21 [id number] ac 400 1 tab PO QAM 11/11/19 04/17/21 mcg-calcium carb 500 mg-vit K1 20 mcg tablet (Women's 50 Plus Multivitamin) Previous Rx's Medication Instructions Recorded apixaban 5 mg tablet (Eliquis) 5 mg PO BID #74 tab 04/17/21 Results & Data (ED) Vital Signs Vital Signs - 24 hr 04/17/21 08:52 04/17/21 09:19 04/17/21 09:20 Temperature 37.1 C Temperature Source Skin Pulse Rate 96 H 78 Pulse Rate from SpO2 Sensor Pulse Rhythm Regular Regular Pulse Strength Normal Respiratory Rate 20 16 Respiratory Effort / Characteristics Non-Labored Spontaneous Non-Labored Spontaneous Respiratory Depth Normal Normal Respiratory Pattern Regular Regular Blood Pressure 161/97 H Blood Pressure Mean 118 Pulse Oximetry 97 96 96 Oxygen Delivery Method Room Air Room Air Room Air Sepsis Recent Fever Within 48 Hours No Sepsis New/Unexplained Change in Mental Status N/A Sepsis Action Taken by Nursing No Action Required 04/17/21 09:21 04/17/21 09:30 04/17/21 10:00 Temperature Temperature Source Pulse Rate 79 78 79 Pulse Rate from SpO2 Sensor 79 79 76 Pulse Rhythm Pulse Strength Respiratory Rate 16 18 19 Respiratory Effort / Characteristics Respiratory Depth Respiratory Pattern Blood Pressure 142/94 H 174/12 H 174/105 H Blood Pressure Mean 110 66 128 Pulse Oximetry 96 96 95 Oxygen Delivery Method Room Air Room Air Room Air Sepsis Recent Fever Within 48 Hours Sepsis New/Unexplained Change in Mental Status Sepsis Action Taken by Nursing 04/17/21 10:30 04/17/21 11:00 04/17/21 11:30 Temperature Temperature Source Pulse Rate 81 80 85 Pulse Rate from SpO2 Sensor 81 80 85 Pulse Rhythm Pulse Strength Respiratory Rate 24 19 19 Respiratory Effort / Characteristics Respiratory Depth Respiratory Pattern Blood Pressure 168/98 H 141/95 H 151/88 H Blood Pressure Mean 121 110 109 Pulse Oximetry 97 95 95 Oxygen Delivery Method Sepsis Recent Fever Within 48 Hours Sepsis New/Unexplained Change in Mental Status Sepsis Action Taken by Nursing 04/17/21 12:40 04/17/21 13:00 04/17/21 13:30 Temperature Temperature Source Pulse Rate 86 79 78 Pulse Rate from SpO2 Sensor 80 77 Pulse Rhythm Pulse Strength Respiratory Rate 19 19 21 Respiratory Effort / Characteristics Respiratory Depth Respiratory Pattern Blood Pressure 164/107 H 174/105 H 166/114 H Blood Pressure Mean 126 128 131 Pulse Oximetry 95 95 95 Oxygen Delivery Method Room Air Sepsis Recent Fever Within 48 Hours Sepsis New/Unexplained Change in Mental Status Sepsis Action Taken by Nursing 04/17/21 14:00 04/17/21 14:30 04/17/21 15:00 Temperature Temperature Source Pulse Rate 78 81 78 Pulse Rate from SpO2 Sensor 78 79 79 Pulse Rhythm Pulse Strength Respiratory Rate 20 18 21 Respiratory Effort / Characteristics Respiratory Depth Respiratory Pattern Blood Pressure 169/103 H 164/106 H 172/104 H Blood Pressure Mean 125 125 126 Pulse Oximetry 96 95 94 Oxygen Delivery Method Sepsis Recent Fever Within 48 Hours Sepsis New/Unexplained Change in Mental Status Sepsis Action Taken by Nursing 04/17/21 15:30 04/17/21 16:00 Temperature Temperature Source Pulse Rate 81 73 Pulse Rate from SpO2 Sensor 79 74 Pulse Rhythm Pulse Strength Respiratory Rate 21 23 Respiratory Effort / Characteristics Respiratory Depth Respiratory Pattern Blood Pressure 160/102 H 182/113 H Blood Pressure Mean 121 136 Pulse Oximetry 94 95 Oxygen Delivery Method Sepsis Recent Fever Within 48 Hours Sepsis New/Unexplained Change in Mental Status Sepsis Action Taken by Shelter Medications Current Medication List: was personally reviewed by me Laboratory Data Attestation: I reviewed the patient's lab results. Result diagrams: 04/17/21 09:21 04/17/21 09:21 Lab Results 04/17/21 04/17/21 04/17/21 Range/Units 09:21 09:21 09:21 WBC 7.91 (4.8-10.8) K/uL RBC 4.71 (4.2-5.4) M/uL Hgb 13.3 (12.0-16.0) g/dL Hct 40.0 (37-47) % MCV 84.9 (80-100) fL MCH 28.2 (25-34) pg MCHC 33.3 (32-36) g/dL RDW Std Deviation 46.7 H (36.4-46.3) fL RDW Coeff of Jayant 15.0 H (11.5-14.5) % Plt Count 255 (130-400) K/uL MPV 10.8 H (7.4-10.4) fL Immature Gran % (Auto) 0.4 % Neut % (Auto) 72.7 % Lymph % (Auto) 16.6 % Blackford % (Auto) 8.7 % Eos % (Auto) 1.3 % Baso % (Auto) 0.3 % Neut # (Auto) 5.76 (1.4-6.5) K/uL Lymph # (Auto) 1.31 (1.2-3.4) K/uL Blackford # (Auto) 0.69 H (0.11-0.59) K/uL Eos # (Auto) 0.10 (0-0.5) K/uL Baso # (Auto) 0.02 (0-0.2) K/uL Immature Gran # (Auto) 0.03 H (0.00-0.02) K/uL PT (9.0-12.0) Seconds INR (0.9-1.1) APTT (21.0-31.0) Seconds PTT Ratio D-Dimer 2140 H* (0-500) ug/L FEU Sodium 140 (136-145) mmol/L Potassium 3.8 (3.5-5.1) mmol/L Chloride 109 H (98-107) mmol/L Carbon Dioxide 23 (21-32) mmol/L Anion Gap 8.0 (3-11) BUN 17 (7-18) mg/dl Creatinine 1.02 (0.6-1.2) mg/dl Est Cr Clr Drug Dosing 66.1 ml/min Est GFR ( Amer) 68.8 ml/min Est GFR (Non-Af Amer) 59.3 ml/min BUN/Creatinine Ratio 17.1 (10-20) Glucose 104 H (70-99) mg/dl Calcium 9.4 (8.5-10.1) mg/dl Total Bilirubin 0.8 (0.2-1) mg/dl AST 16 (15-37) U/L ALT 40 (12-78) U/L Alkaline Phosphatase 82 (45-117) U/L Troponin I < 0.015 (0-0.045) ng/ml Total Protein 8.0 (6.4-8.2) gm/dl Albumin 3.7 (3.4-5.0) gm/dl Globulin 4.3 H (2.5-4.0) gm/dl Albumin/Globulin Ratio 0.9 (0.9-2) Lipase 214 (73-393) U/L COVID-19 Eval Order SARS-CoV-2 (PCR) (Negative) 04/17/21 04/17/21 04/17/21 Range/Units 09:21 12:50 12:50 WBC (4.8-10.8) K/uL RBC (4.2-5.4) M/uL Hgb (12.0-16.0) g/dL Hct (37-47) % MCV (80-100) fL MCH (25-34) pg MCHC (32-36) g/dL RDW Std Deviation (36.4-46.3) fL RDW Coeff of Jayant (11.5-14.5) % Plt Count (130-400) K/uL MPV (7.4-10.4) fL Immature Gran % (Auto) % Neut % (Auto) % Lymph % (Auto) % Blackford % (Auto) % Eos % (Auto) % Baso % (Auto) % Neut # (Auto) (1.4-6.5) K/uL Lymph # (Auto) (1.2-3.4) K/uL Blackford # (Auto) (0.11-0.59) K/uL Eos # (Auto) (0-0.5) K/uL Baso # (Auto) (0-0.2) K/uL Immature Gran # (Auto) (0.00-0.02) K/uL PT 9.8 (9.0-12.0) Seconds INR 1.0 (0.9-1.1) APTT 24.6 (21.0-31.0) Seconds PTT Ratio 0.9 D-Dimer (0-500) ug/L FEU Sodium (136-145) mmol/L Potassium (3.5-5.1) mmol/L Chloride (98-107) mmol/L Carbon Dioxide (21-32) mmol/L Anion Gap (3-11) BUN (7-18) mg/dl Creatinine (0.6-1.2) mg/dl Est Cr Clr Drug Dosing ml/min Est GFR ( Amer) ml/min Est GFR (Non-Af Amer) ml/min BUN/Creatinine Ratio (10-20) Glucose (70-99) mg/dl Calcium (8.5-10.1) mg/dl Total Bilirubin (0.2-1) mg/dl AST (15-37) U/L ALT (12-78) U/L Alkaline Phosphatase (45-117) U/L Troponin I (0-0.045) ng/ml Total Protein (6.4-8.2) gm/dl Albumin (3.4-5.0) gm/dl Globulin (2.5-4.0) gm/dl Albumin/Globulin Ratio (0.9-2) Lipase (73-393) U/L COVID-19 Eval Order Covid19 at [facility] SARS-CoV-2 (PCR) NEGATIVE (Negative) Administered Medications Heparin Sodium/Dextrose (Heparin Sodium/Dextrose) 25,000 units in 500 mls @ 17 mls/hr IV .Q24H [facility]; Protocol Stop: 05/17/21 11:29 Last Admin: 04/17/21 12:42 Dose: 850 units/hr, 17 mls/hr Documented by: [id number] Cosigned by: [id number] Discontinued Medications Heparin Sodium (Porcine) (Heparin Sod (Porcine) 1000 Unit/Ml) 1 units IV NOW ONE Stop: 04/17/21 11:28 Last Admin: 04/17/21 12:41 Dose: 4,000 units Documented by: [id number] Cosigned by: [id number] Heparin Sodium/Dextrose (Heparin Iv Adult Wt-Based Low-Dose With Bolus Protocol) 1 ea IV NOW STA; Protocol Stop: 04/17/21 11:13 Last Admin: 04/17/21 12:45 Dose: Not Given Documented by: [id number] Ioversol (Optiray 320 125ml) 120 ml IV ONCE ONE Stop: 04/17/21 10:25 Last Admin: 04/17/21 10:24 Dose: 120 ml Documented by: [id number] Imaging Data Radiologist's Impression: Chest X-Ray 04/17/21 09:07 SINGLE VIEW CHEST CLINICAL HISTORY: Atypical chest pain. FINDINGS: An AP, portable, upright chest radiograph is compared to study dated 10/05/2019. The cardiomediastinal silhouette is unremarkable. There are low lung volumes with bibasilar atelectasis. No airspace consolidation or large pleural effusion is identified. No pneumothorax is seen. The skeletal structures are osteopenic. The bony thorax is grossly intact. IMPRESSION: No active disease in the chest. ACT 112: Negative or not required by law. Electronically signed by: Suman Roblero M.D. 04/17/2021 9:32 AM Chest CTA 04/17/21 09:53 CT ANGIOGRAM OF THE CHEST CLINICAL HISTORY: Dyspnea. Right-sided chest wall pain. COMPARISON STUDY: Chest x-ray dated 04/17/2021. TECHNIQUE: Following the IV administration of 120 cc of Optiray 320, CT angiogram of the chest was performed from the upper abdomen to the thoracic inlet utilizing the pulmonary embolus protocol. Images are reviewed in the axial, sagittal, and coronal planes. 3-D MIPS images are created and assessed. IV contrast was administered without complication. A dose lowering technique was utilized adhering to the principles of ALARA. CT DOSE: 367.50 mGy.cm FINDINGS: Thyroid: Low-attenuation thyroid nodules measure up to 14 mm. Thoracic aorta: The thoracic aorta is normal in caliber and demonstrates standard 3-vessel arch anatomy. No dissection is seen. Pulmonary vasculature: The pulmonary trunk is normal in caliber. There are segmental and subsegmental pulmonary emboli within branches of the right lower lobe pulmonary artery. The remaining pulmonary vessels appear clear. Heart: The heart is enlarged and without pericardial effusion. Lungs and pleural spaces: Dependent atelectasis is present in both lungs. Trace pleural effusion is seen on the right. A small focus of subpleural wedge-shaped consolidation in the superior segment of the right lower lobe in image #155 is typical for a small pulmonary infarct. There is no airspace consolidation typical for pneumonia. The trachea and central airways are clear. Mediastinum: There is no mediastinal lymphadenopathy. Elvia: Clear. Axillae: There is no axillary lymphadenopathy. Upper abdomen: There is a small hiatal hernia. Partially visualized upper abdominal viscera is otherwise within normal limits. Skeletal structures: No lytic or blastic bony lesions are seen. IMPRESSION: 1. There are segmental and subsegmental pulmonary emboli within branches of the right lower lobe pulmonary artery. 2. There is a small pulmonary infarct in the superior segment of the right lower lobe. 3. Trace right pleural effusion. 4. No airspace consolidation is identified typical for pneumonia. 5. Cardiomegaly. 6. Bilateral thyroid nodules measure up to 14 mm. Follow-up with a nonemergent thyroid ultrasound is recommended for further assessment. 7. Additional findings as above. ACT 112: Positive. There are findings on this exam that require communication between the performing entity and the patient following Patient Test Result Information Act ([place] Act 112) guidelines. Electronically signed by: Suman Roblero M.D. 04/17/2021 10:42 AM Venous Doppler Study 04/17/21 10:54 ULTRASOUND BILATERAL LOWER EXTREMITY VENOUS CLINICAL HISTORY: Pulmonary embolus. COMPARISON STUDY: No priors. TECHNIQUE: Real-time, grayscale, and color Doppler sonography of the deep veins of the right and left lower extremity was performed from the inguinal crease to the calf. Compression and augmentation were utilized. FINDINGS: There is no sonographic evidence of deep venous thrombosis identified in the right or left lower extremity. The common femoral, superficial femoral, and popliteal veins are patent and normally compressible bilaterally. The greater saphenous vein and the profunda femoris vein at the junction with the common femoral vein are clear in both legs. The visualized calf veins are patent bilaterally. IMPRESSION: There is no sonographic evidence of deep venous thrombosis identified in the right or left lower extremity. ACT 112: Negative or not required by law. Electronically signed by: Suman Roblero M.D. 04/17/2021 12:44 PM Discharge Plan Visit Data Chief Complaint: Shortness of Breath/Dyspnea Stated Complaint: SOB ED Provider: Suman Tenorio Discharge Problem: Right-sided chest pain, SOB (shortness of breath), Pulmonary emboli, Pleuritic chest pain Patient Disposition: Home - Self-Care Condition: Fair Forms Stand Alone Forms: [facility], Virtual Emergency Department, Important Visit Information Prescriptions Prescriptions: New Eliquis 5 mg tablet 5 mg PO BID Qty: 74 RF: 0 No Action amlodipine [Norvasc] 5 mg tablet 5 mg PO QAM RF: 0 clopidogrel [Plavix] 75 mg tablet 75 mg PO QAM RF: 0 atorvastatin [Lipitor] 40 mg tablet 40 mg PO QAM RF: 0 aspirin [Ecotrin Low Strength] 81 mg tablet,delayed release (DR/EC) 81 mg PO QAM RF: 0 Women's 50 Plus Multivitamin 400 mcg-500 mg calcium-20 mcg Tablet 1 tab PO QAM RF: 0 Referrals Referrals: Nilda Connor DO [Primary Care Provider] -
[2021-04-17 09:33] LABS: Basophils # (auto) 0.02 K/uL (0-0.2); Basophils % (auto) 0.3 %; Eosinophils % (auto) 1.3 %; Hemoglobin 13.3 g/dL (12.0-16.0); Immature Granulocytes # (auto) 0.03 K/uL (0.00-0.02); Immature Granulocytes % (auto) 0.4 %; Lymphocytes # (auto) 1.31 K/uL (1.2-3.4); Lymphocytes % (auto) 16.6 %; Mean Corpuscular Hemoglobin 28.2 pg (25-34); Mean Corpuscular Hgb Conc 33.3 g/dL (32-36); Mean Corpuscular Volume 84.9 fL (80-100); Mean Platelet Volume 10.8 fL (7.4-10.4); Monocytes # (auto) 0.69 K/uL (0.11-0.59); Monocytes % (auto) 8.7 %; Neutrophils # (auto) 5.76 K/uL (1.4-6.5); Neutrophils % (auto) 72.7 %; Platelet Count 255 K/uL (130-400); RDW Standard Deviation 46.7 fL (36.4-46.3); Red Blood Count 4.71 M/uL (4.2-5.4); White Blood Count 7.91 K/uL (4.8-10.8)
--- NOTE | 2021-04-17 09:33 | XRay Report ---
SINGLE VIEW CHEST CLINICAL HISTORY: Atypical chest pain. FINDINGS: An AP, portable, upright chest radiograph is compared to study dated 10/05/2019. The cardiom ediastinal silhouette is unremarkable. There are low lung volumes with bibasilar atelectasis. No airs pace consolidation or large pleural effusion is identified. No pneumothorax is seen. The skeletal str uctures are osteopenic. The bony thorax is grossly intact. IMPRESSION: No active disease in the chest. ACT 112: Negative or not required by law. Electronically signed by: Suman Roblero M.D. 04/17/2021 9:32 AM
[2021-04-17 09:51] LABS: Alanine Aminotransferase 40 U/L (12-78); Albumin Level 3.7 gm/dl (3.4-5.0); Aspartate Aminotransferase 16 U/L (15-37); BUN Creatinine Ratio 17.1 (10-20); Blood Urea Nitrogen 17 mg/dl (7-18); Calcium 9.4 mg/dl (8.5-10.1); Carbon Dioxide 23 mmol/L (21-32); Chloride 109 mmol/L (98-107); Creatinine Clr Calc Pharmacy 66.1 ml/min; Est GFR (African American) 68.8 ml/min; Est GFR (Non-African American) 59.3 ml/min; Glucose 104 mg/dl (70-99); Lipase 214 U/L (73-393); Potassium 3.8 mmol/L (3.5-5.1); Sodium 140 mmol/L (136-145)
[2021-04-17 09:52] LABS: D Dimer 2140 ug/L FEU (0-500)
[2021-04-17 09:55] LABS: Albumin Globulin Ratio 0.9 (0.9-2); Alkaline Phosphatase 82 U/L (45-117); Bilirubin,Total 0.8 mg/dl (0.2-1); Globulin 4.3 gm/dl (2.5-4.0); Troponin I < 0.015 ng/ml (0-0.045)
[2021-04-17] MEDS ORDERED: OPTIRAY 320 125ml IV ONE (10:24)
--- NOTE | 2021-04-17 10:44 | CT Scan Report ---
CT ANGIOGRAM OF THE CHEST CLINICAL HISTORY: Dyspnea. Right-sided chest wall pain. COMPARISON STUDY: Chest x-ray dated 04/17/2021. TECHNIQUE: Following the IV administration of 120 cc of Optiray 320, CT angiogram of the chest was pe rformed from the upper abdomen to the thoracic inlet utilizing the pulmonary embolus protocol. Images are reviewed in the axial, sagittal, and coronal planes. 3-D MIPS images are created and assessed. I V contrast was administered without complication. A dose lowering technique was utilized adhering to the principles of ALARA. CT DOSE: 367.50 mGy.cm FINDINGS: Thyroid: Low-attenuation thyroid nodules measure up to 14 mm. Thoracic aorta: The thoracic aorta is normal in caliber and demonstrates standard 3-vessel arch anato my. No dissection is seen. Pulmonary vasculature: The pulmonary trunk is normal in caliber. There are segmental and subsegmental pulmonary emboli within branches of the right lower lobe pulmonary artery. The remaining pulmonary v essels appear clear. Heart: The heart is enlarged and without pericardial effusion. Lungs and pleural spaces: Dependent atelectasis is present in both lungs. Trace pleural effusion is s een on the right. A small focus of subpleural wedge-shaped consolidation in the superior segment of t he right lower lobe in image #155 is typical for a small pulmonary infarct. There is no airspace cons olidation typical for pneumonia. The trachea and central airways are clear. Mediastinum: There is no mediastinal lymphadenopathy. Elvia: Clear. Axillae: There is no axillary lymphadenopathy. Upper abdomen: There is a small hiatal hernia. Partially visualized upper abdominal viscera is otherw ise within normal limits. Skeletal structures: No lytic or blastic bony lesions are seen. IMPRESSION: 1. There are segmental and subsegmental pulmonary emboli within branches of the right lower lobe pulm onary artery. 2. There is a small pulmonary infarct in the superior segment of the right lower lobe. 3. Trace right pleural effusion. 4. No airspace consolidation is identified typical for pneumonia. 5. Cardiomegaly. 6. Bilateral thyroid nodules measure up to 14 mm. Follow-up with a nonemergent thyroid ultrasound is recommended for further assessment. 7. Additional findings as above. ACT 112: Positive. There are findings on this exam that require communication between the performing entity and the patient following Patient Test Result Information Act ([place] Act 112) guidelines. Electronically signed by: Suman Roblero M.D. 04/17/2021 10:42 AM
[2021-04-17] MEDS ORDERED: Heparin IV Adult Wt-Based Low-Dose WITH Bolus Protocol IV STA (11:12)
[2021-04-17] MEDS ORDERED: HEPARIN SOD (PORCINE) 1000 UNIT/ML IV ONE ×2 (11:27→20:13)
[2021-04-17 12:03] LABS: Partial Thromboplastin Ratio 0.9; Partial Thromboplastin Time 24.6 Seconds (21.0-31.0); Prothrombin Time 9.8 Seconds (9.0-12.0)
--- NOTE | 2021-04-17 12:07 | Electrocardiogram Report ---
Test Reason : Blood Pressure : / mmHG Vent. Rate : 075 BPM Atrial Rate : 075 BPM P-R Int : 154 ms QRS Dur : 098 ms QT Int : 378 ms P-R-T Axes : 012 -09 001 degrees QTc Int : 422 ms Normal sinus rhythm Cannot rule out Inferior infarct , age undetermined Abnormal ECG When compared with ECG of 06-OCT-2019 07:09, No significant change was found Confirmed by Mauro Sal ([id number]) on 04/17/2021 12:06:55 PM Referred By: REFERRED SELF Confirmed By:Mauro Sal
[2021-04-17] MEDS: HEPARIN SODIUM/DEXTROSE 25,000 UNITS/500 ML BAG IV SCH (12:42)
--- NOTE | 2021-04-17 12:46 | Ultrasound Report ---
ULTRASOUND BILATERAL LOWER EXTREMITY VENOUS CLINICAL HISTORY: Pulmonary embolus. COMPARISON STUDY: No priors. TECHNIQUE: Real-time, grayscale, and color Doppler sonography of the deep veins of the right and left lower extremity was performed from the inguinal crease to the calf. Compression and augmentation wer e utilized. FINDINGS: There is no sonographic evidence of deep venous thrombosis identified in the right or left lower extremity. The common femoral, superficial femoral, and popliteal veins are patent and normally compressible bilaterally. The greater saphenous vein and the profunda femoris vein at the junction w ith the common femoral vein are clear in both legs. The visualized calf veins are patent bilaterally. IMPRESSION: There is no sonographic evidence of deep venous thrombosis identified in the right or lef t lower extremity. ACT 112: Negative or not required by law. Electronically signed by: Suman Roblero M.D. 04/17/2021 12:44 PM
--- NOTE | 2021-04-17 16:09 | History & Physical Report ---
Date of Service April 17, 2021 Assessment & Plan (1) Acute pulmonary embolism: Plan: #. Acute PE Patient presented with acute onset of right chest pain on the day of arrival associated with mild tachycardia and shortness of breath. Per patient, in the recent past patient has been busy in remodeling her house and had been weight lifting and hence thought she had pulled muscle. At presentation, troponin x1 -, respiratory WNL, heart rate slightly tachycardic at presentation but WNL afterwards. Admitting CXR negative for acute finding. Admitting CTA chest positive for segmental and subsegmental pulmonary emboli within branches of right lower lobe pulmonary artery. Small pulmonary infarct in the superior segment of the right lower lobe. No airspace consolidation. Admitting venous Doppler BLE: Negative for DVT BLE Patient started on heparin drip while in ED, continue with heparin drip. Stress of anticoagulation discussed with the patient with pros and cons on his of the agent, patient elected to go with [facility] and find out the cost to make decision. [facility] has been sent to her 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 #. Bilateral thyroid nodules Admitting CTA positive for bilateral thyroid nodules measuring up to 14 mm Follow-up with nonemergent thyroid ultrasound as an outpatient #. Other chronic medical conditions: Hypertension/renal artery aneurysm and status post stent Continue home medications. As needed hydralazine DVT prophylaxis: Patient on heparin drip Disposition: Possible discharge tomorrow once home anticoagulation is figured out if no new issues arises. History of Present Illness Chief Complaint: Right chest pain Primary Care Provider: Nilda Connor DO 61-year-old female with PMH of hypertension with goal less than 140/90, adjustment disorder with mixed anxiety and depressed mood, bilateral renal artery aneurysms status post right renal artery stenting and history of melanoma status post resection [follows [place]] presented 04/17 with complaint of sudden onset of right-sided chest pain starting today morning, on and off, sharp in nature, lasting for seconds, no radiation, 04/17, aggravated with deep breathing and movement, no pain with Shallow breathing, and associated with shortness of breath. Patient denies any fever/chills/feeling of heart racing/belly pain/acute changes in her bowel bladder habits/numbness or tingling anywhere in the body/skin bruises or rashes or wounds. Patient reports that she was doing remodeling of her house recently and had just started weight lifting and hence doubted it might be a pulled muscle. She does not smoke/consume alcohol/use recreational drugs. No history of blood clot, history of melanoma. Patient on aspirin and Plavix for history of renal artery aneurysm. Home medications confirmed with the patient at bedside. Allergies Allergy/AdvReac Type Severity Reaction Status Date / Time No Known Allergies Allergy Verified 04/17/21 09:37 Home Medications Medication Instructions Recorded Confirmed Type amlodipine 5 mg tablet (Norvasc) 5 mg PO QAM 09/10/19 04/17/21 History aspirin 81 mg tablet,delayed 81 mg PO QAM 09/10/19 04/17/21 History release (Ecotrin Low Strength) atorvastatin 40 mg tablet (Lipitor) 40 mg PO QAM 09/10/19 04/17/21 History clopidogrel 75 mg tablet (Plavix) 75 mg PO QAM 09/10/19 04/17/21 History rnlcmqfp-fvt-afcqh ac 400 1 tab PO QAM 11/11/19 04/17/21 History mcg-calcium carb 500 mg-vit K1 20 mcg tablet (Women's 50 Plus Multivitamin) apixaban 5 mg tablet (Eliquis) 5 mg PO BID #74 tab 04/17/21 Rx Past Med/Surg History Medical History (Updated 04/17/21 @ 16:52 by Suman Tenorio MD) Adjustment disorder with mixed anxiety and depressed mood Benign essential hypertension with target blood pressure below 140/90 COVID-19 Dermatitis fungal Dysthymic disorder History of stent insertion of renal artery Open wound of foot Polyneuropathy in diseases classified elsewhere Suppression amblyopia Surgical History H/O eye surgery H/O: hysterectomy S/P tonsillectomy Social History Smoking Status: Never smoker Hx Alcohol Use: No Hx Substance Use: No Preferred Language: Andorran Communication Ability: Effective Visual Impairment: Limited Hearing Ability: Normal Softball Player Required: No Beliefs That Will Affect Care: None marital status: Current Living Situation: Spouse current occupational status: employed Feels Safe at Home: Yes Assistive Devices: None Physical Exam Physical Exam: GENERAL: Alert and oriented x3. NAD, on RA. HEENT: No pallor, no icterus. Pupils equal, round and reactive to light. Oral mucosa moist. NECK: No JVD, no neck masses. Reproducible pain on the right chest below breast with deep breathing and on deep palpation. HEART: S1 and S2 heard. Regular rate and rhythm. No murmur, no gallop. RESPIRATORY SYSTEM: Normal AP diameter. No accessory muscle use. No wheezing, no crackles. ABDOMEN: Soft, bowel sounds present, nontender, no distention. CENTRAL NERVOUS SYSTEM: No facial droop. Speech is clear. Obeys simple commands. Moves extremities. EXTREMITIES: No edema, no erythema seen. Results & Data Results & Data ([facility]) Vital Signs (Past 12 Hours) Vital Signs Temp Pulse Resp BP Pulse Ox 04/17/21 15:00 78 21 172/104 H 94 04/17/21 14:30 81 18 164/106 H 95 04/17/21 14:00 78 20 169/103 H 96 04/17/21 13:30 78 21 166/114 H 95 04/17/21 13:00 79 19 174/105 H 95 04/17/21 12:40 86 19 164/107 H 95 04/17/21 11:30 85 19 151/88 H 95 04/17/21 11:00 80 19 141/95 H 95 04/17/21 10:30 81 24 168/98 H 97 04/17/21 10:00 79 19 174/105 H 95 04/17/21 09:30 78 18 174/12 H 96 04/17/21 09:21 79 16 142/94 H 96 04/17/21 09:20 96 04/17/21 09:19 78 16 96 04/17/21 08:52 37.1 C 96 H 20 161/97 H 97 Code Status & VTE Plan VTE Prophylaxis Plan VTE Prophylaxis will be ordered: Yes
[2021-04-17] MEDS ORDERED: hydrALAZINE HCL 20 MG/ML VIAL IV PRN (18:29)
[2021-04-17 19:24] LABS: Partial Thromboplastin Ratio 1.4; Partial Thromboplastin Time 37.6 Seconds (21.0-31.0)
[2021-04-17] MEDS ORDERED: LABETALOL HCL IV 5 MG/ML 20ML IV STA ×2 (19:37→19:47)
[2021-04-17] MEDS ORDERED: ACETAMINOPHEN 325 MG TAB PO PRN (21:23)
[2021-04-17] MEDS ORDERED: PROMETHAZINE HCL 12.5 MG in SODIUM CHLORIDE 0.9% 50 ML IV PRN (21:33)
[2021-04-17] MEDS ORDERED: traMADol HCL 50 MG TABLET PO PRN (22:39)
[2021-04-17] MEDS ORDERED: LIDOCAINE 5% 1 PATCH TD SCH (23:00)
[2021-04-18] MEDS ORDERED: MAGNESIUM SULFATE / D5W 1 GM/100 ML BAG IV ONE (00:14)
[2021-04-18] MEDS ORDERED: POTASSIUM CHLORIDE CRTAB 20 MEQ TABCR PO STA (00:14)
[2021-04-18 03:56] LABS: Partial Thromboplastin Ratio 1.5; Partial Thromboplastin Time 40.4 Seconds (21.0-31.0)
--- NOTE | 2021-04-18 07:10 | CT Scan Report ---
HEAD CT NONCONTRAST CT DOSE: 614.27 mGy.cm HISTORY: Headache. TECHNIQUE: Multiaxial CT images of the head were performed without the use of intravenous contrast. A utomated exposure control was utilized for this study. A dose lowering technique was utilized adheri ng to the principles of ALARA. Comparison: Head CT 12/03/2007. Findings: The paranasal sinuses and mastoid air cells are clear. The calvarium and skull base are int act. There is no mass, hematoma, midline shift, acute infarct. White matter hypodensity is nonspecifi c but suggestive of microvascular ischemic change. The ventricles and sulci demonstrate mild age-rela juan involutional changes. Impression: No significant change compared to the prior study. No acute intracranial abnormality. ACT 112: Negative or not required by law. Electronically signed by: Tanner Ruff M.D. 04/18/2021 7:08 AM
[2021-04-18] MEDS ORDERED: ATORVASTATIN 40 MG TAB PO SCH (09:00)
[2021-04-18] MEDS ORDERED: ASPIRIN 81 MG ECTAB PO SCH (09:00)
[2021-04-18] MEDS ORDERED: amLODIPine BESYLATE 5 MG TAB PO SCH (09:00)
[2021-04-18] MEDS ORDERED: CLOPIDOGREL BISULFATE 75 MG TAB PO SCH (09:00)
[2021-04-18 10:49] LABS: Partial Thromboplastin Ratio 1.5; Partial Thromboplastin Time 39.6 Seconds (21.0-31.0)
[2021-04-18] MEDS: HEPARIN SODIUM/DEXTROSE 25,000 UNITS/500 ML BAG IV SCH (15:42)
--- NOTE | 2021-04-18 16:46 | Discharge Summary ---
Date of Service April 18, 2021 Admission HPI Per Admitting Provider 61-year-old female with PMH of hypertension with goal less than 140/90, adjustment disorder with mixed anxiety and depressed mood, bilateral renal artery aneurysms status post right renal artery stenting and history of melanoma status post resection [follows [place]] presented 04/17 with complaint of sudden onset of right-sided chest pain starting today morning, on and off, sharp in nature, lasting for seconds, no radiation, 04/17, aggravated with deep breathing and movement, no pain with Shallow breathing, and associated with shortness of breath. Patient denies any fever/chills/feeling of heart racing/belly pain/acute changes in her bowel bladder habits/numbness or tingling anywhere in the body/skin bruises or rashes or wounds. Patient reports that she was doing remodeling of her house recently and had just started weight lifting and hence doubted it might be a pulled muscle. She does not smoke/consume alcohol/use recreational drugs. No history of blood clot, history of melanoma. Patient on aspirin and Plavix for history of renal artery aneurysm. Home medications confirmed with the patient at bedside. Admission Exam Per Admitting Provider GENERAL: Alert and oriented x3. NAD, on RA. HEENT: No pallor, no icterus. Pupils equal, round and reactive to light. Oral mucosa moist. NECK: No JVD, no neck masses. Reproducible pain on the right chest below breast with deep breathing and on deep palpation. HEART: S1 and S2 heard. Regular rate and rhythm. No murmur, no gallop. RESPIRATORY SYSTEM: Normal AP diameter. No accessory muscle use. No wheezing, no crackles. ABDOMEN: Soft, bowel sounds present, nontender, no distention. CENTRAL NERVOUS SYSTEM: No facial droop. Speech is clear. Obeys simple comma nds. Moves extremities. EXTREMITIES: No edema, no erythema seen. Principal Diagnosis Acute pulmonary embolismnew diagnosis. Discharge Exam GENERAL: Alert and oriented x3. NAD, on RA. HEENT: No pallor, no icterus. Pupils equal, round and reactive to light. Oral mucosa moist. NECK: No JVD, no neck masses. HEART: S1 and S2 heard. Regular rate and rhythm. No murmur, no gallop. RESPIRATORY SYSTEM: Normal AP diameter. No accessory muscle use. No wheezing, no crackles. ABDOMEN: Soft, bowel sounds present, nontender, no distention. CENTRAL NERVOUS SYSTEM: Alert and oriented x3. No facial droop. Speech is clear. Obeys simple commands. Moves extremities. EXTREMITIES: No edema, no erythema seen. Discharge Data Allergies Allergy/AdvReac Type Severity Reaction Status Date / Time No Known Allergies Allergy Verified 04/17/21 09:37 Consultations 04/17/21 12:45 ED Decision to Admit Stat Ordered Studies 04/17/21 09:53 CT angio chest PE protocol Stat 04/17/21 10:54 US venous doppler LE BI Stat 04/17/21 21:23 CT head/brain wo con Urgent Hospital Course (1) Acute pulmonary embolism: 61-year-old female with PMH of hypertension with goal less than 140/90, adjustment disorder with mixed anxiety and depressed mood, bilateral renal artery aneurysms status post right renal artery stenting and history of melanoma status post resection [follows [place]] presented 04/17 with complaint of s udden onset of right-sided chest pain starting today morning, on and off, sharp in nature, lasting for seconds, no radiation, 04/17, aggravated with deep breathing and movement, no pain with Shallow breathing, and associated with shortness of breath. Patient denies any fever/chills/feeling of heart racing/belly pain/acute changes in her bowel bladder habits/numbness or tingling anywhere in the body/skin bruises or rashes or wounds. Patient was in fact remodeling her house and started weightlifting during this time when she got PE. She was managed for the following while in hospital: #. Acute PE Patient presented with acute onset of right chest pain on the day of arrival associated with mild tachycardia and shortness of breath. Per patient, in the recent past patient has been busy in remodeling her house and had been weight lifting and hence thought she had pulled muscle. At presentation, troponin x1 -, respiratory WNL, heart rate slightly tachycardic at presentation but WNL afterwards. Admitting CXR negative for acute finding. Admitting CTA chest positive for segmental and subsegmental pulmonary emboli within branches of right lower lobe pulmonary artery. Small pulmonary infarct in the superior segment of the right lower lobe. No airspace consolidation. Admitting venous Doppler BLE: Negative for DVT BLE Patient started on heparin drip while in ED, continue with heparin drip. After discussion, patient decided to go with Eliquis, with check the cost of her Eliquis, patient was agreeable to the cost, patient advised on the Eliquis regimen, she is advised to take 10 mg twice a day for for 7 days followed by 5 mg twice a day afterwards #. Bilateral thyroid nodules Admitting CTA positive for bilateral thyroid nodules measuring up to 14 mm Follow-up with nonemergent thyroid ultrasound as an outpatient #. Other chronic medical conditions: Hypertension/renal artery aneurysm and status post stent Continue home medications. As needed hydralazine DVT prophylaxis: Patient on heparin drip Patient discharged to home with following instruction at time discharge: Follow-up with primary care physician for evaluation of thyroid nodules bilateral. Follow-up with your primary care physician within a week time. Your aspirin will be held for now until discussion with your primary care phys ician since you are getting the new medication Eliquis for your new diagnosis. Get your blood test CBC in a week time. Your new medication Eliquis: Take first dose 3 hours after discharge. You will have to take 10 mg twice a day for first 7 days followed by 5 mg twice a day afterwards. Take medications as prescribed. Total Time Total Time Spent Total Time Spent (In Minutes): 40 Discharge Plan Discharge Items Patient Disposition: Home - Self-Care Reason For Visit: SOB Discharge Diagnosis: Acute pulmonary embolismnew diagnosis Condition on Discharge: Fair Activity: Resume your previous activity Non-emergency contact: Primary Care Provider Call non-emergency contact if: you have any medication questions, your symptoms worsen and your pain is worsening Follow-up/Referrals: Nilda Connor DO [Primary Care Provider] - (Date & Time 04/22/2021 2:20 PM Provider Nilda Connor DO Department [facility] ) Diet: Regular Addtl Attending Provider Instructions: Follow-up with primary care physician for evaluation of thyroid nodules bilateral. Follow-up with your primary care physician within a week time. Your aspirin will be held for now until discussion with your primary care physician since you are getting the new medication Eliquis for your new diagnosis. Get your blood test CBC in a week time. Your new medication Eliquis: Take first dose 3 hours after discharge. You will have to take 10 mg twice a day for first 7 days followed by 5 mg twice a day afterwards. Take medications as prescribed. Pending Studies at Discharge: No Stand-Alone Forms: My [facility], Smoking Cessation Medications and DC Order Prescriptions: New Eliquis 5 mg tablet 5 mg PO BID Qty: 74 RF: 0 Continued amlodipine [Norvasc] 5 mg tablet 5 mg PO QAM RF: 0 clopidogrel [Plavix] 75 mg tablet 75 mg PO QAM RF: 0 atorvastatin [Lipitor] 40 mg tablet 40 mg PO QAM RF: 0 Women's 50 Plus Multivitamin 400 mcg-500 mg calcium-20 mcg Tablet 1 tab PO QAM RF: 0 Discontinued aspirin [Ecotrin Low Strength] 81 mg tablet,delayed release (DR/EC) 81 mg PO QAM RF: 0 Discharge Orders: Discharge Order (Routine); Ordered 04/18/21 Ordered By: Michelle Craft Admission Data Admit Date/Time: 04/17/21 12:40 Attending Provider: Michelle Craft Admit Provider: Michelle Craft Primary Care Provider: Nilda Connor Other Providers: Michelle Craft
== END 2021-04-18 16:41 | disposition home or self-care (01) ==
LOC: EDINP 08:47 → ED 08:47 → 2W 19:56